=== PATIENT | female | born 1930 | race Caucasian/White ===

== ENCOUNTER → 2016-08-18 | Outpatient (CLI) | payer MEDICARE, MEDICAID ==
[2016-08-18 07:59] LABS: INR - (THERAPEUTIC) 1.6 (0.9-1.1); PROTIME 17.2 SECONDS (9.6-11.1)
== END | disposition disaster alternative care site (69) ==
LOC: LHULL 07:46
PROVIDERS: Internal Medicine
DX: I48.91 Unspecified atrial fibrillation (principal)

== ENCOUNTER → 2016-09-06 | Outpatient (CLI) | payer MEDICARE, MEDICAID, BC | END | disposition disaster alternative care site (69) | LOC: GAMB 10:49 | DX: J18.9 Pneumonia, unspecified organism (principal); R06.02 Shortness of breath; R06.00 Dyspnea, unspecified; R19.7 Diarrhea, unspecified; R05 Cough | CPT/HCPCS: A0422; A0425; A0427; J7030 ==

== ENCOUNTER → 2016-09-15 | Outpatient (CLI) | payer OTHER, MEDICARE, MEDICAID ==
[2016-09-15 12:13] LABS: BILIRUBIN URINE NEGATIVE (NEGATIVE); BLOOD URINE 250 /UL (NEGATIVE); COLOR URINE YELLOW (YELLOW); GLUCOSE URINE NEGATIVE (NEGATIVE); KETONE URINE NEGATIVE (NEGATIVE); LEUKOCYTES URINE 500 /UL (NEGATIVE); NITRITE URINE POSITIVE (NEGATIVE); PH URINE 6.5 (4.0-8.0); PROTEIN URINE 15 mg/dL (NEGATIVE); TURBIDITY URINE 2+ (CLEAR); UROBILINOGEN URINE NORMAL (NORMAL)
[2016-09-15 13:10] LABS: WBC URINE 20-50 #/HPF (NEGATIVE)
[2016-09-15 13:11] LABS: BACTERIA URINE FEW (NEGATIVE); EPITHELIAL URINE RARE #/HPF (NEGATIVE)
== END | disposition disaster alternative care site (69) ==
LOC: LHULL 11:45
PROVIDERS: Internal Medicine
DX: R31.9 Hematuria, unspecified (principal)

== ENCOUNTER → 2016-09-29 | Outpatient (CLI) | payer MEDICARE, MEDICAID ==
[2016-09-29 07:57] LABS: PROTIME 122.6 SECONDS (9.8-11.4)
[2016-09-29 08:01] LABS: INR - (THERAPEUTIC) 11.39 (0.92-1.07)
== END ==
LOC: LHULL 07:37
PROVIDERS: Internal Medicine
DX: Z79.01 Long term (current) use of anticoagulants (principal)